=== PATIENT | male | born 1990 | race Caucasian/White ===

== ENCOUNTER 2017-02-22 22:33 | Emergency (ER) | payer BC ==
--- NOTE | 2017-02-22 23:21 | ERNOTE ---
Lower Extremity HPI - General Lower Extremities Pain: knee: right Time Seen by Provider: 02/22/17 23:10 Source: patient Exam Limitations: no limitations - Immun/Allergies/Home Medications Immunizations: IMMUNIZATION HX Immunizations Up to Date Yes History of Influenza Vaccine No Hx Pneumococcal Vaccination No Allergies/Adverse Reactions: Allergies Allergy/AdvReac Type Severity Reaction Status Date / Time No Known Allergies Allergy Verified 02/22/17 22:44 Home Medications: HOME MEDICATIONS Nabumetone 750 mg PO BID #20 tablet 02/23/17 [Last Taken Unknown] - History of Present Illness Narrative: Pt states that his knee began swelling this evening. He denies any trauma or injury Occurred: this evening Method of Injury: Reports: unknown Other Injuries: Reports: none Review of Systems - Review of Systems Constitutional: Absent: recent illness EYE: Present: no symptoms reported ENT: Present: no symptoms reported Respiratory: Present: no symptoms reported Cardiology: Present: no symptoms reported Gastrointestinal/Abdominal: Present: no symptoms reported Genitourinary: Present: no symptoms reported Musculoskeletal: Absent: muscle pain, muscle stiffness, joint pain Skin: Present: See HPI Neurological: Present: no symptoms reported Endocrine: Present: no symptoms reported Hematologic/Lymphatic: Present: no symptoms reported - Patient's Past Medical History Patient History - Medical: No pertinent hx Patient History - Cardiac/Respiratory: Hypertension Patient History - Cancer: No Hx of Cancer Patient History - Surgical Procedures: No surgical history Patient History - Other: None - Social History Living Situations: home Psych History: No pertinent hx Smoking Status: Never smoker Do you dip or chew tobacco: Yes Alcohol Use: occasionally Drug Use: none - Immunizations Immunizations Up to Date: Yes Hx Pneumococcal Vaccination: No History of Influenza Vaccine: No Physical Exam - Physical Exam General Appearance: Present: wd/wn, alert, no apparent distress Neck: Present: normal inspection, nontender Respiratory: Present: no respiratory distress, no accessory muscle use Back Exam: Present: normal inspection Extremity Exam: Present: joint redness, joint swelling - right knee moderate swelling anterior Neurological Exam: Present: alert, oriented, normal mood/affect Skin Exam: Present: other - erythema around the right knee ED Progress - Results and Orders Patient's Lab Results:: I have reviewed the patient's lab results. Results and Orders: Laboratory Tests 02/22/17 02/22/17 02/22/17 23:30 23:30 23:30 WBC 7.5 Hgb 15.2 Hct 43.4 Plt Count 242 ESR 15 H C-Reactive Prot, Quant Less than 0.2 - Vital Signs Patient's Vital Signs:: I have reviewed the patient's vital signs. Vital Signs: Vital Signs 02/22/17 22:39 Temperature 36.5 C Pulse Rate 102 H Respiratory 18 Rate Blood Pressure 157/107 O2 Sat by Pulse 100 Oximetry - X-Ray X-Ray #1 X-Ray: knee - Right: Interpretation: Interp. by me X-ray Comments: no fracture or dislocation - Progress/Reassessment Chief Complaint: Lower Extremity Pain/ Injury Progress:: Improved Procedures Date and Time: RIGHT KNEE BURSA DRAINAGE: the knee was prepped with betadine. superficial anesthesia was accomplished with ethyl chloride spray a 22g 1.5" needle was inserted into the prepatellar bursa from a lateral approach Initial 15 ml of fluid was clear, straw colored. The last 5 mL was slightly bloody, no purlence was noted. 20ml total fluid removed. fluid was sent to lab for analysis and culture Minimal fluid remained palpable after procedure and was visibly reduced, Pt stated he felt much relief. puncture wound was covered with sterile gauze and knee wrapped with an MAURILIO wrap Complications: Pt román procedure well Departure Clinical Impression: Prepatellar bursitis Qualifiers: Laterality: right Qualified Code(s): M70.41 - Prepatellar bursitis, right knee - Departure Disposition: Home self-care Condition: Good Instructions: Bursitis, [id number] Additional Instructions: See your regular doctor if not improving within 5-7 days Prescriptions: Nabumetone 750 mg PO BID #20 tablet
[2017-02-22 23:37] LABS: Hematocrit 43.4 % (42.0-52.0); Hemoglobin 15.2 gm/dL (13.5-18.0); Mean Cell Volume 85.3 fl (78-100); Mean Corpuscular Hemoglobin 29.9 pg (27-31); Mean Platelet Volume 8.2 fl (6.0-9.5); Neutrophil # 4.6 K/mm3 (1.3-6.0); Neutrophil % 62.1 % (42-75.0); Platelet Count 242 K/mm3 (150-450); Red Blood Count 5.09 M/mm3 (4.7-6.0); White Blood Count 7.5 K/mm3 (4.0-10.5)
[2017-02-23 00:45] VITALS: BP 139/94
== END 2017-02-23 00:45 | disposition home or self-care (01) ==
LOC: ER 22:33
PROC: 0M9N3ZZ Drainage of Right Knee Bursa and Ligament, Percutaneous Approach (ICD-10-PCS; principal; 2017-02-22)
DX: M70.41 Prepatellar bursitis, right knee (principal); Y93.9 Activity, unspecified; Z72.0 Tobacco use